=== PATIENT | female | born 1960 | race Caucasian/White ===

== ENCOUNTER 2018-07-14 11:59 | Day surgery (SDC) | payer OTHER ==
[~2018-07-14] VITALS: Ht 160 cm; Wt 92.3 kg
[~2018-07-14 11:59] MED LIST: PROPOFOL 200 MG INJ ONE
[2018-07-14 12:43] VITALS: Ht 160 cm; Wt 92.3 kg
[2018-07-14 13:09] VITALS: BP 173/77; PULSE 62; RESP 17
[2018-07-14] MEDS ORDERED: omeprazole PO (13:11)
[2018-07-14] MEDS ORDERED: ASPI-903 PO (13:11)
[2018-07-14] MEDS ORDERED: hydrochlorothiazide PO (13:11)
[2018-07-14] MEDS ORDERED: atenolol PO (13:11)
[2018-07-14] MEDS ORDERED: glimepiride PO (13:11)
--- NOTE | 2018-07-14 14:04 | PREAC ---
Date/Time of Note Date/Time of Note DATE: 07/14/18 TIME: 14:03 Anesthesia Eval and Record Evaluation Time Pre-Procedure Interview DATE: 07/14/18 TIME: 14:03 Age 57 Sex female NPO: 8 hrs Preoperative diagnosis screening Planned procedure colonoscopy Past Medical History Past Medical History: Includes Cardio: HTN, Dyslipidemia Endo: Diabetes Surgery & Anesthesia Issues No known issue Meds Anticoagulation: No Beta Onofre within 24 hr: Yes Reported Medications Aspirin* (Aspirin* Chew) 81 Mg Tab.chew, 81 MG PO DAILY, TAB.CHEW 07/14/18 [atenolol] No Conflict Check, PO DAILY 07/14/18 [omeprazole] No Conflict Check, PO DAILY 07/14/18 [hydrochlorothiazide] No Conflict Check, PO DAILY 07/14/18 [glimepiride] No Conflict Check, PO DAILY 07/14/18 Meds reviewed: Yes Allergies Coded Allergies: No Known Allergy (Unverified , 07/14/18) Allergies Reviewed: Yes Labs/Studies Labs Reviewed: Reviewed by anesthesiologist test: N/A Pre-procedure Exam Last vitals Vital Signs Date Temp Pulse Resp B/P (MAP) Pulse Ox O2 O2 Flow FiO2 Time Delivery Rate 07/14/18 98.2 62 17 173/77 99 Room Air 13:09 (109) Airway: Adequate mouth opening, Adequate thyromental dist Mallampati: Mallampati II Teeth: Normal (lower partials in place, pt states it is glued very tightly) Lung: Normal Heart: Normal ASA Physical Status ASA physical status: 2 Emergency: None Planned Anesthetic General/MAC: MAC Pre-operative Attestations Prior to commencing anesthesia and surgery, the patient was re-evaluated, there was verification of: *The patient's identity *The results of appropriate recent lab work and preoperative vital signs *The above evaluation not changing prior to induction *Anesthetic plan, risk benefits, alternative and complications discussed with patient/family; questions answered; patient/family understands, accepts and wishes to proceed. [employer] used RUBY CALDWELL Jul 14, 2018 14:04
[2018-07-14] MEDS ORDERED: LIDOCAINE 2% (SDV) 5 ML INJ ONE (14:06)
[2018-07-14] MEDS ORDERED: PROPOFOL 40 ML ONE (14:06)
--- NOTE | 2018-07-14 14:09 | HPN ---
Date/Time of Note Date/Time of Note DATE: 07/14/18 TIME: 14:08 Interval H&P Admission Note Pt. seen H&P reviewed: No system changes VENITA VALDEZ Jul 14, 2018 14:08
[2018-07-14] MEDS ORDERED: ONDANSETRON 4 MG INJ IV PRN (14:30)
[2018-07-14] MEDS ORDERED: FENTAnyl 50 MCG/ML VIAL IV PRN (14:30)
[2018-07-14] MEDS ORDERED: ALBUTEROL 0.083% (NEB) 2.5 MG/3 ML AMP HHN PRN (14:30)
[2018-07-14] MEDS ORDERED: ACETAMINOPHEN 500 MG TAB PO PRN (14:30)
--- NOTE | 2018-07-14 14:30 | PAC ---
Date/Time of Note Date/Time of Note DATE: 07/14/18 TIME: 14:29 Post-Anesthesia Notes Post-Anesthesia Note Last documented vital signs Vital Signs Date Temp Pulse Resp B/P (MAP) Pulse Ox O2 O2 Flow FiO2 Time Delivery Rate 07/14/18 98.2 62 17 173/77 99 Room Air 13:09 (109) Activity: WNL Respiratory function: WNL Cardiovascular function: WNL Mental status: Baseline Pain reasonably controlled: Yes Hydration appropriate: Yes Nausea/Vomiting absent: Yes Comments BP:112/56, P:76, Spo2:100%, T:98,8 KRISTOPHER BARRETO MD Jul 14, 2018 14:30
[2018-07-14 14:52] VITALS: BP 154/70; PULSE 60; RESP 16
== END 2018-07-14 15:22 | disposition home or self-care (01) ==
LOC: GIL 11:59
PROVIDERS: ATTEND Internal Medicine Gastroenterology
DX: Z12.11 Encounter for screening for malignant neoplasm of colon (principal); K64.8 Other hemorrhoids; E78.5 Hyperlipidemia, unspecified; E11.9 Type 2 diabetes mellitus without complications; I10 Essential (primary) hypertension
CPT/HCPCS: 45378; 82962; Z7610